=== PATIENT | male | born 1965 | race Two or more races ===

== ENCOUNTER → 2024-11-09 | Outpatient (CLI) | payer BC, SELFPAY ==
[2024-11-09 08:53] LABS: Glucose Estimated Average 160 mg/dL (80-131); Hemoglobin A1C 7.2 % Hgb (4.8-6.0)
[2024-11-09 09:16] LABS: Alanine Aminotransferase 28 U/L (10-49); Albumin, Serum 5.1 gm/dL (3.4-4.8); Alkaline Phosphatase 97 U/L (46-116); Anion Gap 6 (7-16); Aspartate Amino Transferase 25 U/L (0-34); BUN/Creatinine Ratio 15 Ratio (12-20); Bilirubin,Total 0.4 mg/dL (0.3-1.2); Blood Urea Nitrogen 15 mg/dL (9-23); Calcium 10.1 mg/dL (8.3-10.6); Calcium (Corrected) 10.1 mg/dL (8.5-10.1); Carbon Dioxide 28.1 mMol/L (20.0-31.0); Chloride 105 mMol/L (98-107); Cholesterol 145 mg/dL (132-200); Globulin 2.5 gm/dL (2.3-3.5); Glucose 144 mg/dL (74-106); HDL Cholesterol 36 mg/dL (40-60); LDL Cholesterol,Calculated 76 mg/dL (0-130); Osmolality,Calculated 281 (275-295); Potassium 4.6 mMol/L (3.4-5.1); Sodium 139 mMol/L (136-145); Total Protein 7.6 gm/dL (5.7-8.2); Triglycerides 166 mg/dL (30-150); eGFR > 60 See Note
[2024-11-09 09:29] LABS: Creatinine MALB Rnd Ur 156 mg/dL (30-125); Microalbumin Creat Ratio 39 mg/gCrea (<30); Microalbumin, Random Urine 61 mg/L (0-300)
== END | disposition home or self-care (01) ==
LOC: COPL 07:57
PROVIDERS: PCP Family Medicine; Referring Provider Family Medicine; Visit Provider Family Medicine
DX: E11.65 Type 2 diabetes mellitus with hyperglycemia (principal); E78.1 Pure hyperglyceridemia
CPT/HCPCS: 36415; 80053; 80061; 82043; 82570; 83036

== ENCOUNTER → 2025-06-10 | Outpatient (CLI) | payer BC, SELFPAY ==
[2025-06-10 09:44] LABS: Prostate Specific Antigen 1.54 ng/mL (0-4.00)
[2025-06-10 09:48] LABS: Alanine Aminotransferase 26 U/L (10-49); Albumin, Serum 5.2 gm/dL (3.4-4.8); Albumin/Globulin Ratio 1.7 (1.2-2.2); Alkaline Phosphatase 91 U/L (46-116); Anion Gap 12 (7-16); Aspartate Amino Transferase 28 U/L (0-34); BUN/Creatinine Ratio 16 Ratio (12-20); Bilirubin,Total 0.6 mg/dL (0.3-1.2); Blood Urea Nitrogen 16 mg/dL (9-23); Calcium 9.7 mg/dL (8.3-10.6); Calcium (Corrected) 9.7 mg/dL (8.5-10.1); Carbon Dioxide 27.3 mMol/L (20.0-31.0); Cardiac Risk Estimate 4.3 RATIO (4.0-6.7); Chloride 102 mMol/L (98-107); Cholesterol 133 mg/dL (132-200); Creatinine (Component) 1.0 mg/dL (0.6-1.3); Globulin 3.0 gm/dL (2.3-3.5); Glucose 140 mg/dL (74-106); HDL Cholesterol 31 mg/dL (40-60); LDL Cholesterol,Calculated 75 mg/dL (0-130); Osmolality,Calculated 284 (275-295); Potassium 3.8 mMol/L (3.4-5.1); Sodium 141 mMol/L (136-145); Total Protein 8.2 gm/dL (5.7-8.2); Triglycerides 134 mg/dL (30-150); eGFR > 60 See Note
[2025-06-10 09:49] LABS: Glucose Estimated Average 166 mg/dL (80-131); Hemoglobin A1C 7.4 % Hgb (4.8-6.0)
[2025-06-10 10:55] LABS: Creatinine MALB Rnd Ur 165 mg/dL (30-125); Microalbumin Creat Ratio 58 mg/gCrea (<30); Microalbumin, Random Urine 96 mg/L (0-300)
== END | disposition home or self-care (01) ==
LOC: COPL 08:52
PROVIDERS: PCP Family Medicine; Referring Provider Family Medicine; Visit Provider Family Medicine
DX: E11.65 Type 2 diabetes mellitus with hyperglycemia (principal); E78.1 Pure hyperglyceridemia; N42.9 Disorder of prostate, unspecified
CPT/HCPCS: 36415; 80053; 80061; 82043; 82570; 83036; 84153